=== PATIENT | female | born 1950 | race Caucasian/White ===

== ENCOUNTER 2016-10-10 17:15 | Emergency (ER) | payer MEDICARE ==
[~2016-10-10] VITALS: Ht 162.6 cm; Wt 73.5 kg
[2016-10-10 17:28] VITALS: BP 119/69; PULSE 75; RESP 16; TEMP 98.6; O2SAT 99
[2016-10-10] MEDS ORDERED: AMLO5TAB2 PO (18:38)
[2016-10-10] MEDS ORDERED: AZO95TAB PO (18:38)
[2016-10-10] MEDS ORDERED: SERT-129 PO (18:38)
[2016-10-10] MEDS ORDERED: ATOR40TA16 PO (18:38)
[2016-10-10] MEDS ORDERED: CRAN500C2 PO (18:38)
[2016-10-10] MEDS ORDERED: VITA10007 PO (18:38)
[2016-10-10] MEDS ORDERED: ESTR42.5V VAGINAL (18:38)
[2016-10-10] MEDS ORDERED: MOBI15TA PO (18:38)
[2016-10-10] MEDS ORDERED: MIRTA15 PO (18:38)
[2016-10-10] MEDS ORDERED: PANT40TA3 PO (18:38)
[2016-10-10] MEDS ORDERED: VESI5TAB PO (18:38)
[2016-10-10] MEDS ORDERED: METH1TAB2 PO (18:38)
[2016-10-10] MEDS ORDERED: CRAN200C2 PO (18:38)
[2016-10-10] MEDS ORDERED: GABA600T PO (18:38)
[2016-10-10] MEDS ORDERED: URIB118C PO (18:38)
--- NOTE | 2016-10-10 19:10 | PD ---
HPI Chief Complaint: Musculoskeletal Complaint Time Seen by Provider: 19:07 Travel History International Travel<30 days: No Contact w/Intl Traveler<30days: No Traveled to known affect area: No History of Present Illness HPI 66-year-old female arrives complaining of low back pain. She has suffered with low back pain for about 30 years or so. She had been on opioids previously. Since relocating here a few years ago she has not required any. She notes for the past day or 2 she has had moderately severe pain she attributes to helping care for her father at home. No fecal urinary incontinence/change in bowel or bladder habits. No perineal/perianal paresthesias. No weakness. No fever. She states typically Percocet is effective for pain management. She saw Dr. Castorena who advised her to come to the ER for evaluation. PFSH Past Medical History Asthma: Yes Depression: Yes Heart Rhythm Problems: Yes (SVT) High Cholesterol: Yes Genitourinary: Yes (CHRONIC UTIs) Hiatal Hernia: Yes Hypertension: Yes Musculoskeletal: Yes (CHRONIC BACK PAIN, BILATERAL CARPAL TUNNEL SYNDROME) Respiratory: Yes (ASTHMA) Immunizations Current: Yes ?: Not Past Surgical History Appendectomy: Yes (RUPTURED) Cardiac Surgery: Yes (CARDIAC ABLATION) Thoracic Surgery: Yes Tonsillectomy: Yes Social History Alcohol Use: No Tobacco Use: No (FORMER) Substance Use: No Allergies-Medications (Allergen,Severity, Reaction): Coded Allergies: Sulfa (Verified Allergy, Severe, FACIAL SWELLING, 10/10/16) Reported Meds & Prescriptions Reported Meds & Active Scripts Active Percocet (Oxycodone-Acetaminophen) 5-325 mg Tab 1-2 Tab PO Q6H PRN Reported Mirtazapine 15 Mg Tab 15 Mg PO HS Estrace Vaginal (Estradiol) 0.01% Cream 1 Gm VAGINAL TID Ellura (Cranberry (Vaccinium Macrocarpon)) 200 Mg Cap 1 Tab PO DAILY Azo Tabs (Phenazopyridine HCl) 95 Mg Tab 1 Tab PO DAILY Vitamin C (Ascorbic Acid) 1,000 Mg Tab 1,000 Mg PO DAILY Cranberry (Cranberry (Vaccinium Macrocarpon)) 500 Mg Cap 1,000 Mg PO BID Uribel (Blzlkcjpgex-Lsiuu-Kyefsdbmf Blue) 1 Cap 118 Mg PO DAILY Mobic (Meloxicam) 15 Mg Tab 15 Mg PO DAILY Pantoprazole (Pantoprazole Sodium) 40 Mg Tab 40 Mg PO BID Vesicare (Solifenacin) 5 Mg Tab 5 Mg PO DAILY Gabapentin 600 Mg Tab 600 Mg PO TID Methenamine Hippurate 1 Gm Tab 1 Gm PO HS Sertraline (Sertraline HCl) 100 Mg Tab 100 Mg PO DAILY Amlodipine (Amlodipine Besylate) 5 Mg Tab 5 Mg PO DAILY Atorvastatin (Atorvastatin Calcium) 40 Mg Tab 40 Mg PO DAILY Review of Systems Except as stated in HPI: all other systems reviewed are Neg Physical Exam Narrative GENERAL: 66-year-old female pleasant ambulatory no acute distress SKIN: Warm and dry. HEAD: Atraumatic. Normocephalic. MUSCULOSKELETAL: Extremities without clubbing, cyanosis, or edema. No obvious deformities. Minimal tenderness to palpation about the bilateral lower lumbar paraspinal musculature. No focal spinal tenderness or weakness. Flexion extension at the knees 5 over 5 bilaterally. 2+ DTRs at patellar tendons bilaterally. Plantar flexion/dorsiflexion at the great toe 5 over 5 bilaterally. Hip flexion equal bilaterally. NEUROLOGICAL: Awake and alert. No obvious cranial nerve deficits. Motor grossly within normal limits. Five out of 5 muscle strength in the arms and legs. Normal speech. PSYCHIATRIC: Appropriate mood and affect; insight and judgment normal. Data Data Last Documented VS Vital Signs Date Time Temp Pulse Resp B/P Pulse Ox O2 Delivery O2 Flow Rate FiO2 10/10/16 17:28 98.6 75 16 119/69 99 MDM Medical Decision Making Medical Screen Exam Complete: Yes Emergency Medical Condition: Yes Differential Diagnosis Myofascial strain, degenerative disc disease, compression on the cord, cauda equina syndrome Narrative Course The patient is in fairly obvious distress. There is no focal neurologic deficit consistent with compression on the cord. Based on the interview is very likely the patient has any acute surgical process or indication for advanced imaging. We will provide a short course of analgesics. Patient is quite agreeable w plan. She is ready for discharge Diagnosis Primary Impression: Low back pain Qualified Code: M54.5 - Chronic left-sided low back pain, with sciatica presence unspecified Referrals: Pati Castorena MD call for appointment Pain Management as needed Additional Instructions: You have a choice when it comes to health care, and we are glad that you chose [facility]. Hopefully, we have met your expectations on today's visit. You are welcome to return to [facility] at any time, as we are committed to meeting the health care needs of our community. Med/Other Pt SpecificInfo: Prescription(s) given Scripts Oxycodone-Acetaminophen (Percocet)5-325 mg Tab1-2 Tab PO Q6H PRN (PAIN SCALE 6 TO 10) #30 TAB Ref 0 Prov:Marvin Solorzano MD 10/10/16 Disposition: 01 DISCHARGE HOME Condition: Stable Marvin Solorzano MD Oct 10, 2016 19:09
[2016-10-10] MEDS ORDERED: PERC5TAB12 PO (19:17)
== END 2016-10-10 19:28 | disposition home or self-care (01) ==
LOC: PHED 17:15 → PHEFT 19:28
DX: M54.5 Low back pain (principal); J45.909 Unspecified asthma, uncomplicated; F32.9 Major depressive disorder, single episode, unspecified; I47.1 Supraventricular tachycardia; E78.00 Pure hypercholesterolemia, unspecified; I10 Essential (primary) hypertension
CPT/HCPCS: 99283

== ENCOUNTER → 2017-01-09 | Outpatient (CLI) | payer MEDICARE ==
[~2017-01-09] MED LIST: AMLO5TAB2 PO; ATOR40TA16 PO; AZO95TAB PO; CRAN200C2 PO; CRAN500C2 PO; ESTR42.5V VAGINAL; GABA600T PO; METH1TAB2 PO; MIRTA15 PO; MOBI15TA PO; PANT40TA3 PO; PERC5TAB12 PO; SERT-129 PO; URIB118C PO; VESI5TAB PO; VITA10007 PO
[2017-01-09 13:52] LABS: ALKALINE PHOSPHATASE 81 U/L (45-117); ALT (GPT) 54 U/L (10-53); ANION GAP 7 MEQ/L (5-15); AST (GOT) 22 U/L (15-37); BICARBONATE 27.9 MEQ/L (21.0-32.0); BLOOD UREA NITROGEN 12 MG/DL (7-18); CHLORIDE 105 MEQ/L (98-107); GLOMERULAR FILTRATION RATE 89 ML/MIN (>89); GLUCOSE,FASTING 90 MG/DL (74-99); HDL CHOLESTEROL 67.7 MG/DL (40.0-60.0); LDL CHOLESTEROL 108 MG/DL (0-99); POTASSIUM 4.1 MEQ/L (3.5-5.1); SODIUM (NA) 140 MEQ/L (136-145); TOTAL BILIRUBIN ADULT 0.4 MG/DL (0.2-1.0)
== END ==
LOC: PLAB 08:26
PROVIDERS: ATTEND Family Medicine
DX: E78.2 Mixed hyperlipidemia (principal); I10 Essential (primary) hypertension; I48.91 Unspecified atrial fibrillation
CPT/HCPCS: 36415; 80053; 80061

== ENCOUNTER 2017-06-05 11:41 | Emergency (ER) | payer MEDICARE ==
[~2017-06-05] VITALS: Ht 161.3 cm; Wt 72.5 kg
[2017-06-05 12:11] VITALS: BP 118/76; PULSE 75; RESP 16; TEMP 98.2; O2SAT 95
[2017-06-05 12:37] LABS: BLOOD, URINE LARGE (NEG); GLUCOSE,URINE 100 mg/dL (NEG); KETONE, URINE 15 mg/dL (NEG); NITRITE,URINE POS (NEG)
[2017-06-05 13:15] LABS: METHOD OF COLLECTION CLEAN CATCH; URINE COLOR ORANGE (YELLW/STRAW)
[2017-06-05 13:16] LABS: WBC, URINE INNUM /hpf (0-5)
[2017-06-05 13:17] LABS: BACTERIA, URINE FEW /hpf; COMMENT (UR) CULTURE INDICATED; CULTURE IF INDICATED CULTURE INDICATED; SQUAMOUS EPITHELIAL CELL URINE > 8 /hpf (0-5)
[2017-06-05] MEDS ORDERED: VITA500T83 PO (14:08)
[2017-06-05] MEDS ORDERED: VITADRO3 PO (14:08)
--- NOTE | 2017-06-05 16:06 | PD ---
HPI Chief Complaint: Complaint Time Seen by Provider: 16:05 Travel History International Travel<30 days: No Contact w/Intl Traveler<30days: No Traveled to known affect area: No History of Present Illness HPI 67-year-old female this emergency department with ongoing and worsening urinary tract infection symptoms including burning, frequency, and cramping. She was recently treated with a week of Augmentin twice a day 1 week. She feels it did not help at all. Patient sees Dr. Rossi her urologist for her recurrent history of UTI. Patient denies current fever, nausea, vomiting, or flank pain. Patient is allergic to sulfa. PFSH Past Medical History Asthma: Yes Depression: Yes Heart Rhythm Problems: Yes (SVT) Cardiovascular Problems: Yes High Cholesterol: Yes Genitourinary: Yes (CHRONIC UTIs) Hiatal Hernia: Yes Hypertension: Yes Musculoskeletal: Yes (CHRONIC BACK PAIN, BILATERAL CARPAL TUNNEL SYNDROME) Respiratory: Yes (ASTHMA) Immunizations Current: Yes Past Surgical History Appendectomy: Yes (RUPTURED) Cardiac Surgery: Yes (CARDIAC ABLATION) Thoracic Surgery: Yes Tonsillectomy: Yes Social History Alcohol Use: No Tobacco Use: No (FORMER) Substance Use: Yes (THC) Allergies-Medications (Allergen,Severity, Reaction): Coded Allergies: Sulfa (Sulfonamide Antibiotics) (Unverified Allergy, Severe, FACIAL SWELLING, 06/05/17) Reported Meds & Prescriptions Reported Meds & Active Scripts Active Macrobid (Nitrofurantoin Monoh/Nitrofur Macro) 100 Mg Cap 100 Mg PO BID 7 Days Reported Vitamin C ER (Ascorbic Acid) 500 Mg Rosalinda 1,000 Mg PO DAILY Vitamin D3 Liq Drops (Cholecalciferol) 5,000 Unit/Ml Drops 3 Drop PO DAILY Take with meals. Estrace Vaginal (Estradiol) 0.01% Cream 1 Gm VAGINAL TID Cranberry (Cranberry (Vaccinium Macrocarpon)) 500 Mg Cap 2,000 Mg PO BID Uribel (Yhfaobjecsc-Yqmmm-Kliewkjow Blue) 1 Cap 118 Mg PO DAILY Pantoprazole (Pantoprazole Sodium) 40 Mg Tab 40 Mg PO BID Vesicare (Solifenacin) 5 Mg Tab 5 Mg PO DAILY Methenamine Hippurate 1 Gm Tab 1 Gm PO HS Sertraline (Sertraline HCl) 100 Mg Tab 100 Mg PO DAILY Amlodipine (Amlodipine Besylate) 5 Mg Tab 5 Mg PO DAILY Atorvastatin (Atorvastatin Calcium) 40 Mg Tab 40 Mg PO DAILY Review of Systems Except as stated in HPI: all other systems reviewed are Neg General / Constitutional: No: Fever Eyes: No: Visual changes HENT: No: Headaches Cardiovascular: No: Chest Pain or Discomfort Respiratory: No: Shortness of Breath Gastrointestinal: No: Abdominal Pain Genitourinary: Positive: Dysuria, No: Flank Pain Musculoskeletal: No: Pain Skin: No Rash Neurologic: No: Weakness Psychiatric: No: Depression Endocrine: No: Polydipsia Hematologic/Lymphatic: No: Easy Bruising Physical Exam Narrative GENERAL: Patient is a distress. She is seated comfortably in the exam room. SKIN: Warm and dry. Color. Normal turgor. HEAD: Atraumatic. Normocephalic. EYES: Pupils equal and round. No scleral icterus. No injection or drainage. ENT: No nasal bleeding or discharge. Mucous membranes pink and moist. NECK: Trachea midline. Supple and nontender. CARDIOVASCULAR: Regular rate and rhythm. RESPIRATORY: No accessory muscle use. Clear to auscultation. Breath sounds equal bilaterally. GASTROINTESTINAL: Abdomen soft, non-tender, nondistended. Hepatic and splenic margins not palpable. No CVA tenderness. MUSCULOSKELETAL: Extremities without clubbing, cyanosis, or edema. No obvious deformities. NEUROLOGICAL: Awake and alert. No obvious cranial nerve deficits. Motor grossly within normal limits. Five out of 5 muscle strength in the arms and legs. Normal speech. PSYCHIATRIC: Appropriate mood and affect; insight and judgment normal. Data Data Last Documented VS Vital Signs Date Time Temp Pulse Resp B/P (MAP) Pulse Ox O2 Delivery O2 Flow Rate FiO2 06/05/17 12:11 98.2 75 16 118/76 (90) 95 Orders Orders Urinalysis - C+S If Indicated (06/05/17 12:17) Urine Culture (06/05/17 12:19) Labs Laboratory Tests Test 06/05/17 12:19 Urine Collection Type CLEAN CATCH Urine Color ORANGE Urine Turbidity MOD Urine pH 5.0 Urine Specific [place] 1.025 Urine Protein 300 OR GREATER mg/dL Urine Glucose (UA) 100 mg/dL Urine Ketones 15 mg/dL Urine Occult Blood LARGE Urine Nitrite POS Urine Bilirubin NEG Urine Leukocyte Esterase LARGE Urine RBC 25-49 /hpf Urine WBC INNUM /hpf Urine WBC Clumps MANY Urine Squamous Epithelial Cells > 8 /hpf Urine Bacteria FEW /hpf Microscopic Urinalysis Comment CULTURE INDICATED Urine Collection Time 12:19 [facility] Medical Decision Making Medical Screen Exam Complete: Yes Emergency Medical Condition: Yes Differential Diagnosis Dysuria. Recurrent urinary tract infection. Chronic cystitis. Narrative Course Patient is medically stable at time of exam. Patient is started on Macrodantin 100 mg twice a day 7 days. Patient can continue with Azo as needed. Patient is to follow-up with her urologist next week to ensure clearance. Patient can return to emergency Department with worsening symptoms if necessary. Diagnosis Primary Impression: Urinary tract infection Qualified Codes: N30.00 - Acute cystitis without hematuria Referrals: Urologist 1 week Patient Instructions: General Instructions Additional Instructions: Patient is medically stable at time of exam. Patient is started on Macrodantin 100 mg twice a day 7 days. Patient can continue with Azo as needed. Patient is to follow-up with her urologist next week to ensure clearance. Patient can return to emergency Department with worsening symptoms if necessary. Med/Other Pt SpecificInfo: Prescription(s) given Scripts Nitrofurantoin Monohydrate Macrocrystals (Macrobid) 100 Mg Cap 100 MG PO BID for Infection for 7 Days, CAP 0 Refills Prov: Clayton Castaneda MD 06/05/17 Disposition: 01 DISCHARGE HOME Condition: Stable Kal Flynn Jun 05, 2017 16:06
[2017-06-05] MEDS ORDERED: MACR100C2 PO (16:13)
[2017-06-05 16:51] VITALS: BP 121/77
== END 2017-06-05 16:52 | disposition home or self-care (01) ==
LOC: PHED 11:41
DX: N30.00 Acute cystitis without hematuria (principal); I10 Essential (primary) hypertension; I47.1 Supraventricular tachycardia
CPT/HCPCS: 81001; 87086; 99283

== ENCOUNTER → 2017-07-10 | Outpatient (CLI) | payer MEDICARE ==
[~2017-07-10] MED LIST changes: -AZO95TAB PO; -CRAN200C2 PO; -GABA600T PO; +MACR100C2 PO; -MIRTA15 PO; -MOBI15TA PO; -PERC5TAB12 PO; -VITA10007 PO; +VITA500T83 PO; +VITADRO3 PO
[2017-07-10 13:14] LABS: ALT (GPT) 30 U/L (10-53); ANION GAP 7 MEQ/L (5-15); AST (GOT) 16 U/L (15-37); BLOOD UREA NITROGEN 9 MG/DL (7-18); CHLORIDE 107 MEQ/L (98-107); GLOMERULAR FILTRATION RATE 101 ML/MIN (>89); GLUCOSE,FASTING 88 MG/DL (74-99); SODIUM (NA) 140 MEQ/L (136-145)
[2017-07-10 13:17] LABS: ALKALINE PHOSPHATASE 82 U/L (45-117); HDL CHOLESTEROL 57.4 MG/DL (40.0-60.0); LDL CHOLESTEROL 91 MG/DL (0-99); TOTAL BILIRUBIN ADULT 0.5 MG/DL (0.2-1.0)
== END ==
LOC: PLAB 10:11
PROVIDERS: ATTEND Family Medicine
DX: F41.9 Anxiety disorder, unspecified (principal); E78.2 Mixed hyperlipidemia
CPT/HCPCS: 36415; 80053; 80061

== ENCOUNTER 2017-11-22 13:50 | Emergency (ER) | payer MEDICARE ==
[~2017-11-22] VITALS: Ht 162.6 cm; Wt 74.0 kg
[~2017-11-22 13:50] MED LIST changes: -VESI5TAB PO; +VESI5TAB2 PO
[2017-11-22 13:55] VITALS: BP 157/74; PULSE 86; RESP 16; TEMP 99.2; O2SAT 96
[2017-11-22] MEDS ORDERED: VOLT1GEL16 (14:11)
[2017-11-22] MEDS ORDERED: CARI1TAB45 (14:11)
[2017-11-22] MEDS ORDERED: ADVA250A INH (14:11)
[2017-11-22] MEDS ORDERED: TIZA2TAB PO (14:11)
[2017-11-22] MEDS ORDERED: MELO15TA20 PO (14:11)
[2017-11-22] MEDS ORDERED: KETOROLAC TROMETHAMINE 60 MG/2 ML (IM) VIAL IM ONE (15:15)
[2017-11-22] MEDS ORDERED: ROBA750T PO (15:15)
[2017-11-22] MEDS ORDERED: ORPHENADRINE INJ 60 MG/2 ML AMP IM ONE (15:15)
--- NOTE | 2017-11-22 15:15 | PD ---
HPI Chief Complaint: Pain: Acute or Chronic Time Seen by Provider: 14:27 Travel History International Travel<30 days: No Contact w/Intl Traveler<30days: No Traveled to known affect area: No History of Present Illness HPI 59-year-old female here with right-sided neck pain radiates into the arm 2 weeks. She reports his history of chronic neck and back pain and has had similar symptoms in the past. Pain is unrelieved by meloxicam and hydrocodone. Symptom severity is moderate. Aggravated by palpation of the right trapezius muscle and range of motion of the upper extremity. Slightly with rest. Denies paresthesia or weakness of the upper extremity is. PFSH Past Medical History Asthma: Yes Depression: Yes Heart Rhythm Problems: Yes (SVT) Cardiovascular Problems: Yes (htn on meds) High Cholesterol: Yes COPD: Yes Genitourinary: Yes (CHRONIC UTIs) Hiatal Hernia: Yes Hypertension: Yes Musculoskeletal: Yes (CHRONIC BACK PAIN, BILATERAL CARPAL TUNNEL SYNDROME) Respiratory: Yes (copd, asthma) Immunizations Current: Yes ?: Not Past Surgical History Appendectomy: Yes (RUPTURED) Cardiac Surgery: Yes (CARDIAC ABLATION) Thoracic Surgery: Yes Tonsillectomy: Yes Social History Alcohol Use: No Tobacco Use: No (FORMER) Substance Use: Yes (THC) Allergies-Medications (Allergen,Severity, Reaction): Coded Allergies: Sulfa (Sulfonamide Antibiotics) (Unverified Allergy, Severe, FACIAL SWELLING, 11/22/17) hydromorphone (Verified Allergy, Severe, 11/22/17) Reported Meds & Prescriptions Reported Meds & Active Scripts Active Reported Advair Diskus Inh (Fluticasone-Salmeterol Inh) 250-50 Mcg/Blist Aer 1 Puff INH BID Rinse mouth after use. Voltaren (Diclofenac Sodium) 1 % Gel..gram. Carisoprodol 250 Mg Tab 250 Mg QID PRN Meloxicam 15 Mg Tab 15 Mg PO DAILY Tizanidine (Tizanidine HCl) 2 Mg Tab 2 Mg PO TID Vitamin C ER (Ascorbic Acid) 500 Mg Rosalinda 1,000 Mg PO DAILY Estrace Vaginal (Estradiol) 0.01% Cream 1 Gm VAGINAL TID Uribel (Xwlryfeiwpw-Llyal-Tffbpqfto Blue) 1 Cap 118 Mg PO DAILY Pantoprazole (Pantoprazole Sodium) 40 Mg Tab 40 Mg PO BID Methenamine Hippurate 1 Gm Tab 1 Gm PO HS Sertraline (Sertraline HCl) 100 Mg Tab 100 Mg PO DAILY Amlodipine (Amlodipine Besylate) 5 Mg Tab 5 Mg PO DAILY Atorvastatin (Atorvastatin Calcium) 40 Mg Tab 40 Mg PO DAILY Review of Systems Except as stated in HPI: all other systems reviewed are Neg General / Constitutional: No: Fever Eyes: No: Visual changes HENT: No: Headaches Cardiovascular: No: Chest Pain or Discomfort Respiratory: No: Shortness of Breath Gastrointestinal: No: Abdominal Pain Genitourinary: No: Dysuria Physical Exam Narrative GENERAL: Alert and well-appearing 67-year-old female SKIN: Warm and dry. HEAD: Normocephalic. Atraumatic EYES:No injection or drainage. NECK: Supple, trachea midline. No JVD or lymphadenopathy. +TTP right trapezius muscle. No cervical midline tenderness. Patient can freely move the neck. CARDIOVASCULAR: Regular rate and rhythm without murmurs, gallops, or rubs. RESPIRATORY: Breath sounds equal bilaterally. No accessory muscle use. GASTROINTESTINAL: Abdomen soft, non-tender, nondistended. MUSCULOSKELETAL: No cyanosis, or edema. Normal strength and sensation in the upper extremities. Equal hand grasp. BACK: Nontender without obvious deformity. No CVA tenderness. Data Data Last Documented VS Vital Signs Date Time Temp Pulse Resp B/P (MAP) Pulse Ox O2 Delivery O2 Flow Rate FiO2 11/22/17 13:55 99.2 86 16 157/74 (101) 96 Orders Orders Urinalysis - C+S If Indicated (11/22/17 13:51) Ketorolac Inj (Toradol Inj) (11/22/17 15:15) Orphenadrine Inj (Norflex Inj) (11/22/17 15:15) Labs Laboratory Tests Test 11/22/17 14:15 [facility] Medical Decision Making Medical Screen Exam Complete: Yes Emergency Medical Condition: Yes Differential Diagnosis Cervical radiculopathy, herniated disc, trapezius muscle spasm Narrative Course This is a 67-year-old female here with right-sided trapezius muscle spasm. She has a history of cervical radiculopathy. She denies any injury or trauma. 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 This present for 2 weeks. On exam she has no cervical midline tenderness. She has tenderness of the trapezius muscle. She has a normal neurologic exam. She has normal strength and sensation of the upper 70s. She was given a shot of Toradol and Norflex and had symptom improvement. She'll be discharged home with muscle relaxers. Diagnosis Primary Impression: Cervical radiculopathy Referrals: Primary Care Physician Additional Instructions: Stop Tizanidine & replace with Robaxin. Do not mix the two Ice and/or heat for comfort. Follow-up with her primary doctor pain management Scripts Methocarbamol (Robaxin) 750 Mg Tab 750 MG PO QID for Muscle Spasm, #14 TAB 0 Refills Prov: Deanna Hull 11/22/17 Disposition: 01 DISCHARGE HOME Condition: Stable Deanna Hull Nov 22, 2017 15:15
[2017-11-22 15:37] LABS: BILIRUBIN, URINE NEG (NEG); BLOOD, URINE NEG (NEG); GLUCOSE,URINE NEG (NEG); KETONE, URINE NEG (NEG); NITRITE,URINE NEG (NEG); URINE COLOR YELLOW (YELLW/STRAW); URINE LEUKOCYTE ESTERASE NEG (NEG)
[2017-11-22 15:43] LABS: WBC, URINE 0-2 /hpf (0-5)
[2017-11-22 15:44] LABS: RBC, URINE 0-3 /hpf (0-3); SQUAMOUS EPITHELIAL CELL URINE 0-5 /hpf (0-5)
== END 2017-11-22 15:53 | disposition home or self-care (01) ==
LOC: PHEFT 13:50
DX: M54.12 Radiculopathy, cervical region (principal); F32.9 Major depressive disorder, single episode, unspecified; I10 Essential (primary) hypertension; E78.00 Pure hypercholesterolemia, unspecified; J44.9 Chronic obstructive pulmonary disease, unspecified; Z88.5 Allergy status to narcotic agent; Z88.2 Allergy status to sulfonamides
CPT/HCPCS: 81001; 96372; 99283; J1885; J2360